=== PATIENT | male | born 1945 | race Caucasian/White ===

== ENCOUNTER 2016-12-27 12:27 | Observation (INO) | payer MEDICARE, OTHER ==
[2016-12-18 11:30] LABS: MEAN CORPUS HGB CONC 34.7 g/dL (32.0-36.0); MEAN CORPUSCULAR VOLUME 83.7 fL (80-100); MEAN PLATELET VOLUME 9.4 fL (9.2-13.0); PLATELET COUNT 317 10/3/uL (150-400); RBC DISTRIBUTION WIDTH 13.9 % (12.0-16.0); RED CELL COUNT 4.48 10/6/uL (4.7-6.1); WHITE BLOOD CELLS 7.1 10/3/uL (4.5-10.5)
[2016-12-18 11:32] LABS: HEMATOCRIT 37.5 % (40.0-51.0); MANUAL DIFF YES %
[2016-12-18 11:34] LABS: INTERNATIONAL NORMAL RATI 1.2 UNITS (-); PARTIAL THROMBO TIME 32.6 SEC (22.5-37.2); PROTIME (NOT ORD) 14.6 SEC (12.0-14.5)
[2016-12-18 11:46] LABS: BUN (BLOOD UREA NITROGEN) 11 MG/DL (6-23); CALCIUM, SERUM 8.8 MG/DL (8.5-10.4); CHLORIDE, SERUM 103 MMOL/L (96-112); CO2 (CARBON DIOXIDE) 24 MMOL/L (24-34); CREATININE 1.39 MG/DL (0.70-1.30); GFR AFRICAN AMERICAN 59 ML/MIN (>=60); GFR NON AFRICAN AMERICAN 51 ML/MIN (>=60); GLUCOSE, SERUM 189 MG/DL (60-99); POTASSIUM, SERUM 4.9 MMOL/L (3.5-5.3); SODIUM, SERUM 135 MMOL/L (135-148)
[2016-12-18 11:47] LABS: EOSINOPHILS 1 %; EOSINOPHILS ABSOLUTE (CALC) 0.07 10/3/uL (0.0-0.53); LYMPHOCYTES 23 %; LYMPHOCYTES ABSOLUTE (CALC) 1.63 10/3/uL (0.67-4.30); MONOCYTES 2 %; MONOCYTES ABSOLUTE (CALC) 0.14 10/3/uL (0.21-1.20); NEUTROPHILS ABSOLUTE (CALC) 5.25 10/3/uL (2.02-8.40); PLATELET ESTIMATE ADQ (ADEQUATE); RBC MORPHOLOGY NORM (NORMAL); SEGMENTED NEUTROPHIL (0) 74 %; TOTAL NUCLEATED CELLS 100
--- NOTE | ~2016-12-27 | HP ---
History And Physical [address] [address] NAME: CORNELIUS MANN : 47 STATUS : ADM Desmond PAT#: [id number] AGE: 71 ADM/REG DATE : 12/27/16 MR#: [id number] REPORT SERV DATE: 12/28/16 DICTATED BY: ANDREW SMITH DATE: 12/27/16 REPORT STATUS : Draft TRANSCRIBED BY: MODParag DATE: 12/27/16 DATE OF ADMISSION: 12/27/2016 ADMITTING HISTORY: This is a 71-year-old white male, well-known to me with a history of obstructive and irritative voiding complaints. Outpatient evaluation has revealed a moderately enlarged prostate with obstruction. He has been managed up to this point on finasteride and tamsulosin. At this point, he is admitted for cystoscopy and TURP. MEDICAL HISTORY: Includes coronary artery disease status post CABG as well as cardiac stent placement. He has been followed by Dr. Gan. He is managed on Eliquis and Plavix chronically. Other medical history includes TIAs, hypertension, history of an NV in 1995, reflux, history of skin cancer, diabetes, hypothyroidism, depression. SURGICAL HISTORY: CABG, two cardiac stents, bilateral knee surgeries, finger surgery, neck surgery, colonoscopy. SOCIAL HISTORY: He is . He is a nonsmoker. CURRENT MEDICATIONS: Eliquis, Abilify, Lipitor, Coreg, vitamin D, Plavix, Trulicity, Cymbalta, Proscar, Amaryl, Prevacid, levothyroxine, Cozaar, Glucophage, Nitrostat, K-Chlor, Januvia, Flomax, and Ambien. ALLERGIES: HE IS ALLERGIC TO LORAZEPAM. PHYSICAL EXAMINATION: GENERAL: He is a very pleasant, white male, in no distress. Alert and oriented. He is afebrile. VITAL SIGNS: Stable. Pupils equal, round, and reactive. Extraocular movements intact. Oropharynx is clear. NECK: Supple. No adenopathy or bruits. HEART: Regular rate and rhythm. BACK: No CVA tenderness. ABDOMEN: Soft, nontender, nondistended. GENITOURINARY: Penis is circumcised and is normal. Testes descended bilaterally. Epididymitis, spermatic cord, and scrotum are normal. Prostate 1+ enlarged, benign feeling on rectal exam. EXTREMITIES: No cyanosis or edema. LABORATORY VALUES: White cell count 7.1, H and H 13 and 37, platelet count 317. PT and PTT 14.6 and 32.6, BUN and creatinine 11 and 1.39 respectively. IMPRESSION: 1. Symptomatic benign prostatic hypertrophy. 2. Coronary artery disease. 3. Diabetes. 4. History of transient ischemic attack. History And Physical [address] [address] NAME: CORNELIUS MANN : 47 STATUS : ADM Desmond PAT#: [id number] AGE: 71 ADM/REG DATE : 12/27/16 MR#: [id number] REPORT SERV DATE: 12/28/16 DICTATED BY: ANDREW SMITH DATE: 12/27/16 REPORT STATUS : Draft TRANSCRIBED BY: DELTA DATE: 12/27/16 PLAN: We will admit at this time for cystoscopy, TURP. Risks of infection, bleeding, failure, need for further surgery, incontinence, stricture, etc. have been reviewed. BRAXTON/DELTA Andrew Smith M.D. / [id number] CC: Alex Mackey M.D.
--- NOTE | ~2016-12-27 | OP ---
Record Of Operation [facility] [address] [place]. [address] NAME: CORNELIUS MANN : 47 STATUS : ADM Desmond PAT#: [id number] AGE: 71 ADM/REG DATE : 12/27/16 MR#: [id number] REPORT SERV DATE: 12/27/16 DICTATED BY: ANDREW SMITH DATE: 12/27/16 REPORT STATUS : Draft TRANSCRIBED BY: MODL DATE: 12/27/16 DATE OF PROCEDURE: 12/27/2016 PREOPERATIVE DIAGNOSIS: Symptomatic benign prostatic hypertrophy. POSTOPERATIVE DIAGNOSIS: Symptomatic benign prostatic hypertrophy. PROCEDURE PERFORMED: Cystoscopy, transurethral resection of the prostate. SURGEONS: Andrew Smith M.D. ANESTHESIA: General. ESTIMATED BLOOD LOSS: 10 mL. INDICATIONS: This is a 71-year-old white male with irritative and obstructive voiding complaints. After discussion of management options, we have elected to proceed with cystoscopy and TURP. Risks of infection, bleeding, failure, need for further surgery have been discussed. DESCRIPTION OF PROCEDURE: The patient was taken to the operating room and underwent a general anesthetic. He was placed in the lithotomy position on the table, and his external genitalia were sterilely prepped and draped. The 22-Austrian cystoscope sheath with 30-degree lens was inserted under direct vision per urethra with the aid of the video monitor. The anterior urethra looked normal. The prostatic urethra was relatively short with a somewhat fibrous-appearing elevated bladder neck and mild lateral lobe occlusion. The bladder itself was inspected. There was mild trabeculation. Single orifices were seen bilaterally. There were no stones or mass lesions within the bladder. The urethra was then dilated to 28- Austrian using sounds and the 26-Austrian resectoscope sheath with Ruy obturator was inserted into the bladder. The bladder and prostate were reinspected using the 30-degree lens again with the aid of the video monitor. The median lobe region of the prostate was resected from just inside the bladder neck out to the veru. There was very minimal bleeding noted here. Protruding adenoma from the right and left lateral lobes was then resected again with care being taken not to extend the resection distal to the veru. There was essentially no bleeding here either. He had a small amount of anterior adenoma, which was also resected using the veru as the distal margin of resection. Inspection of the prostatic fossa at this point revealed it to be wide open. There was essentially no bleeding and very minimal use of electrocautery was made for hemostasis. The Datavolution evacuator was used to remove all prostate chips from the bladder. The prostate and bladder were reinspected with no significant findings noted. The endoscopic apparatus was removed and a 22-Austrian 3-way Dorado catheter was placed to gravity drainage and continuous irrigation was begun. The urine return was essentially clear. He tolerated the procedure quite well. There were no complications. He was taken to recovery in stable condition. Record Of Operation [facility] [address] [place]. [address] NAME: CORNELIUS MANN : 47 STATUS : ADM Desmond PAT#: [id number] AGE: 71 ADM/REG DATE : 12/27/16 MR#: [id number] REPORT SERV DATE: 12/27/16 DICTATED BY: ANDREW SMITH DATE: 12/27/16 REPORT STATUS : Draft TRANSCRIBED BY: DELTA DATE: 12/27/16 BRAXTON/DELTA Andrew Smith M.D. / [id number] CC: Alex Mackey M.D.
[~2016-12-27 12:27] MED LIST: ABILIFY2 PO; ALLER-TEC PO; AMARYL2 PO; AMB10 PO; AUG875 PO; CORDARONE PO; COREG12 PO; COREG25 PO; COZ50 PO; CYMBALTA30 PO; ELIQUIS 5 MG TAB5 MG PO; FLOMAX4 PO; GLUCPH PO; HALF81 PO; JANUVIA50 PO; KLOR-CON M2020 MEQ PO; LEVOTHYROXIN50 MCG PO; LIPITOR20 PO; NITROSTAT0.4 MG SL; NORV5 PO; PAX20 PO; PLAVIX PO; PREV30 PO; PROSCAR5 PO; TRILEP300 PO; TRULICITY1.5 MG/0.5 SQ; VITAMIN D31000 UNIT PO; ZYRTEC ALLGY10 MG PO; [UNRECOGNIZED DRUG - REMARK] TOP
[2016-12-28 06:00] LABS: BASOPHILS 0.5 %; BASOPHILS ABSOLUTE 0.04 10/3/uL (0.0-0.16); EOSINOPHILS 3.3 %; EOSINOPHILS ABSOLUTE 0.29 10/3/uL (0.0-0.53); HEMATOCRIT 35.4 % (40.0-51.0); HEMOGLOBIN 11.7 g/dL (13.6-17.8); IMMATURE GRANULOCYTES 0.2 %; IMMATURE GRANULOCYTES ABSOLUTE 0.02 10/3/uL (0.0-0.11); LYMPHOCYTES 22.2 %; LYMPHOCYTES ABSOLUTE 1.96 10/3/uL (0.67-4.30); MEAN CORPUS HGB CONC 33.1 g/dL (32.0-36.0); MEAN CORPUSCULAR HEMOGLOB 28.2 pg (26.0-34.0); MEAN CORPUSCULAR VOLUME 85.3 fL (80-100); MEAN PLATELET VOLUME 9.6 fL (9.2-13.0); MONOCYTES 7.9 %; NEUTROPHILS 65.9 %; PLATELET COUNT 314 10/3/uL (150-400); RBC DISTRIBUTION WIDTH 14.9 % (12.0-16.0); RED CELL COUNT 4.15 10/6/uL (4.7-6.1); WHITE BLOOD CELLS 8.8 10/3/uL (4.5-10.5)
[2016-12-28 06:02] LABS: MANUAL DIFF NO %
[2016-12-28 06:14] LABS: BUN (BLOOD UREA NITROGEN) 12 MG/DL (6-23); CALCIUM, SERUM 8.1 MG/DL (8.5-10.4); CHLORIDE, SERUM 102 MMOL/L (96-112); CO2 (CARBON DIOXIDE) 27 MMOL/L (24-34); CREATININE 1.27 MG/DL (0.70-1.30); GFR AFRICAN AMERICAN 66 ML/MIN (>=60); GFR NON AFRICAN AMERICAN 57 ML/MIN (>=60); POTASSIUM, SERUM 4.4 MMOL/L (3.5-5.3); SODIUM, SERUM 135 MMOL/L (135-148)
[2016-12-28 06:15] LABS: GLUCOSE, SERUM 109 MG/DL (60-99)
[2016-12-29] MEDS ORDERED: PCET PO (13:43)
[2016-12-29] MEDS ORDERED: DSS PO (13:43)
== END 2016-12-29 14:18 | disposition home or self-care (01) ==
LOC: SDC 12:27 → 4SO 18:22
PROVIDERS: Urology
PROC: 0VT08ZZ Resection of Prostate, Via Natural or Artificial Opening Endoscopic (ICD-10-PCS; principal; 2016-12-27 14:00)
DX: C61 Malignant neoplasm of prostate (principal); I25.10 Atherosclerotic heart disease of native coronary artery without angina pectoris; I10 Essential (primary) hypertension; I25.2 Old myocardial infarction; K21.9 Gastro-esophageal reflux disease without esophagitis; E11.9 Type 2 diabetes mellitus without complications; E03.9 Hypothyroidism, unspecified; F32.9 Major depressive disorder, single episode, unspecified; Z95.1 Presence of aortocoronary bypass graft; Z95.5 Presence of coronary angioplasty implant and graft; Z79.02 Long term (current) use of antithrombotics/antiplatelets; Z79.899 Other long term (current) drug therapy; Z86.73 Personal history of transient ischemic attack (TIA), and cerebral infarction without residual deficits; Z98.890 Other specified postprocedural states; Z79.52 Long term (current) use of systemic steroids; Z88.8 Allergy status to other drugs, medicaments and biological substances
CPT/HCPCS: 71020; 80048; 82962; 85025; 85610; 85730; 88305; 88341; 88342; 93005; A9270-GY; G0378; J2270; J3010